=== PATIENT | female | born 1940 | race Caucasian/White ===

== ENCOUNTER 2017-09-26 21:53 | Inpatient (IN) | payer OTHER, MEDICAID, MEDICARE ==
--- NOTE | 2017-09-27 00:22 | ED Physician Chart ---
ED Chief Complaint/HPI - Patient Information Date Seen:: 09/27/17 Time Seen:: 22:40 Chief Complaint:: abdominal pain History of Present Illness:: location: abdomen quality: sharp pain severity: mild duration; two weeks context: pt with persistent upper abdominal pain intermittently over the last 2 weeks. says she was recently admitted at [facility] for rehab after pneumonia. and has been at [facility] many times in the last few years related to bilateral knee replacement surgery. lives at home alone. no care provider at home. currently reports sharp upper abdominal pain, says she has eaten today but currently has no appetite but says she is anxious and wants to take her routine prescribed xanax medication that she gets on a schedule when at [facility]. no chest pain, no shortness of breath. pt points to upper abdomen just superior to umbilicus. no vomiting, no diarrhea, no fever. mod factors: none assoc s/s: none hx from pt. medics report that pt called for ambulance from home and was initially taken to [facility] but when the ambulance arrived at the door of that facility pt decided to change to another facility and asked the medics to take her to [facility]. Allergies:: Allergies Allergy/AdvReac Type Severity Reaction Status Date / Time aspirin AdvReac STOMACH Verified 09/26/17 22:54 CRAMPS Vitals:: Vital Signs - 8 hr 09/26/17 22:30 Temp 98.1 F HR 80 RR 18 BP 158/71 O2 Sat % 96 Historian:: Patient Review:: Nurse's Note Reviewed, EMS run form Reviewed ED Review of Systems - Review of Systems General/Constitutional: No fever, No chills, No weight loss, No weakness, No diaphoresis, No edema, No loss of appetite Skin: No skin lesions, No rash, No bruising Head: No headache, No light-headedness Eyes: No loss of vision, No pain, No diplopia ENT: No earache, No nasal drainage, No sore throat, No tinnitus Neck: No neck pain, No swelling, No thyromegaly, No stiffness, No mass noted Cardio Vascular: No chest pain, No palpitations, No PND, No orthopnea, No edema Pulmonary: No SOB, No cough, No sputum, No wheezing GI: No nausea, No vomiting, No diarrhea, Pain, No melena, No hematochezia, No constipation, No hematemesis G/U: No dysuria, No frequency, No hematuria Musculoskeletal: No bone or joint pain, No back pain, No muscle pain Endocrine: No polyuria, No polydipsia Psychiatric: No prior psych history, No depression, No anxiety, No suicidal ideation Hematopoietic: No bruising, No lymphadenopathy Allergic/Immuno: No urticaria, No angioedema Neurological: No syncope, No focal symptoms, No weakness, No paresthesia, No headache, No seizure, No dizziness, No confusion, No vertigo ED Past Medical History - Past Medical History Past Medical History: Asthma/COPD (pt says she never smoked tobacco but was exposed to second hand smoke for many years. ), Thyroid disorder Family History: None Social History: Non Smoker, No Alcohol, No Drug Use Surgical History: other (bilateral knee replacement surgery) Psychiatricy History: Depression Medication: Reviewed Family Medical History - Family Member Mother History Unknown: Yes Ethnicity: Non- Living Status: ED Physical Exam - Physical Examination General/Constitutional: Awake, Well-developed, well-nourished, Alert, No distress, GCS 15, Non-toxic appearing, Ambulatory Head: Atraumatic Eyes: Lids, conjuctiva normal, PERRL, EOMI Skin: Nl inspection, No skin lesions, No ecchymosis ENMT: External ears, nose nl, Nasal exam nl, Lips, teeth, gums nl, Oropharynx nl Neck: Nontender, No nuchal rigidity Respiratory: Nl effort/Exclusion, Clear to Auscultation, No Wheeze/Rhonchi/Rales Cardio Vascular: RRR, No murmur, gallop, rubs, NL S1 S2 GI: No tenderness/rebounding/guarding (upper abdominal tenderness, no rebound, no guarding, pt with morbidly obese abdomen, mildly increasd bowel sounds at epigastrium) : No CVA tenderness Extremities: No tenderness or effusion, Full ROM, normal strength in all extremities, No edema, Normal digits & nails Neuro/Psych: Alert/oriented, DTR's symmetric, Normal sensory exam, Normal motor strength, Judgement/insight normal, Mood normal, No focal deficits Misc: Normal back, No paraspinal tenderness ED Labs/Radiology/EKG Results - Lab Results Results: Laboratory Tests 09/27/17 09/27/17 09/27/17 00:45 00:47 00:47 WBC 10.8 RBC 5.64 H Hgb 15.4 D Hct 47.6 D MCV 84.4 MCH 27.2 MCHC Differential 32.3 RDW 15.3 Plt Count 262 D MPV 9.0 Neutrophils % 69.3 Lymphocytes % 20.0 Monocytes % 9.1 Eosinophils % 1.6 Basophils % 0.0 Sodium Potassium Chloride Carbon Dioxide Anion Gap BUN Creatinine Est GFR ( Amer) Est GFR (Non-Af Amer) BUN/Creatinine Ratio Glucose Whole Bld Lactic Acid 0.71 Calcium Total Bilirubin AST ALT Alkaline Phosphatase Total Protein Albumin Globulin Albumin/Globulin Ratio Urine Source CATH Urine Color YELLOW Urine Clarity HAZY Urine pH 7.5 Ur Specific [place] 1.015 Urine Protein NEGATIVE Urine Glucose (UA) NEGATIVE Urine Ketones TRACE Urine Blood NEGATIVE Urine Nitrate NEGATIVE Urine Bilirubin NEGATIVE Urine Urobilinogen 0.2 Ur Leukocyte Esterase TRACE H Urine RBC 0-2 Urine WBC 2-5 Ur Epithelial Cells MODERATE Amorphous Sediment MANY PHOSPHATES Urine Bacteria MODERATE Urine Mucus FEW 09/27/17 00:47 WBC RBC Hgb Hct MCV MCH MCHC Differential RDW Plt Count MPV Neutrophils % Lymphocytes % Monocytes % Eosinophils % Basophils % Sodium 140 Potassium 3.7 Chloride 108 H Carbon Dioxide 26.6 Anion Gap 9.1 BUN 18 Creatinine 0.6 Est GFR ( Amer) TNP Est GFR (Non-Af Amer) TNP BUN/Creatinine Ratio 30.0 Glucose 107 H Whole Bld Lactic Acid Calcium 9.6 Total Bilirubin 0.5 AST 11 L ALT 16 Alkaline Phosphatase 81 Total Protein 7.1 Albumin 3.9 Globulin 3.2 Albumin/Globulin Ratio 1.2 Urine Source Urine Color Urine Clarity Urine pH Ur Specific [place] Urine Protein Urine Glucose (UA) Urine Ketones Urine Blood Urine Nitrate Urine Bilirubin Urine Urobilinogen Ur Leukocyte Esterase Urine RBC Urine WBC Ur Epithelial Cells Amorphous Sediment Urine Bacteria Urine Mucus - Radiology Results Results: CT abdomen and pelvis no acute findings gallbladder and uterus surgically absent no appendicitis is visualized fatty replacement of pancreatic head no biliary dilation liver and spleen unremarkable scarring inferior pole left kidney colonic diverticulosis, no diverticulitis L1 anterior compression fracture, chronic RAD READ - EKG Interpretations Comments:: EKG atrial fibrillation rate 74 borderline left axis deviation low voltage precordial leads no acute ST elevation no acute ST depression abnormal EKG pt with upper abdominal pain on initial evaluation. abnormal EKG ED Assessment - Assessment General Assessment: pt in stable condition while in ER ED Septic Shock - . Is Septic Shock (SBP<90, OR Lactate>4 mmol\L) present?: No - <6hrs of presentation: Vital Signs: Vital Signs - 8 hr 09/26/17 22:30 Temp 98.1 F HR 80 RR 18 BP 158/71 O2 Sat % 96 ED Reassessment (Disposition) - Reassessment Reassessment:: medical decision making: pt is recent SNF discharge from [facility] for rehab after pneumonia. currently no complaint of cough or fever and physical examination shows no cough or basilar rales. pt with upper abdominal pain. will explore this further to assess ifi patient has an acute abdominal diagnosis. CT abdomen and pelvis. pt with large body habitus, morbidly obese abdomen it is fairly possible that if patient has an acute intraabdominal process ongoiing that she would not be able to provide self care due to weakness. CT abdomen and pelvis shows no acute findings - RAD READ L1 anterior compression fracture, non-acute diverticulosis, no diverticulitis RAD READ. Reassessment Condition:: Improved - Diagnosis Diagnosis:: chest pain upper abdominal pain anxiety - improved. - Patient Disposition Discharge/Transfer:: Acute Care w/in this hosp Admitted to:: Telemetry Condition at Disposition:: Stable, Improved
[2017-09-27 01:00] LABS: % EOSINOPHILS 1.6 % (0.0-5.0); % MONOCYTES 9.1 % (2.0-10.0); % NEUTROPHILS 69.3 % (40.0-80.0); MEAN CELL VOLUME 84.4 fl (81-100); MEAN CORPUSCULAR HEMOGLOBIN 27.2 pg (27.0-31.0); MEAN CORPUSCULAR HGB CONC 32.3 pg (28.0-36.0); NEUTROPHILE ABSOLUTE 7.4 Th/cmm (1.8-8.0); RED BLOOD COUNT 5.64 Mil/cmm (3.80-5.20); RED CELL DISTRIBUTION WIDTH 15.3 % (11.5-20.0); WHITE BLOOD COUNT 10.8 Th/cmm (4.8-10.8)
[2017-09-27 01:01] LABS: HEMOGLOBIN 15.4 gm/dL (12-16)
[2017-09-27 01:02] LABS: HEMATOCRIT 47.6 % (41.0-60); PLATELET COUNT 262 Th/cmm (150-400)
[2017-09-27 01:19] LABS: URINE BILIRUBIN NEGATIVE (NEGATIVE); URINE BLOOD NEGATIVE (NEGATIVE); URINE GLUCOSE (UA) NEGATIVE (NEGATIVE); URINE KETONE TRACE mg/dL (NEGATIVE); URINE PH 7.5 (4.6 - 8.0); URINE PROTEIN NEGATIVE (NEGATIVE); URINE UROBILINOGEN 0.2 E.U./dL (0.2 - 1.0)
[2017-09-27 01:21] LABS: ALB/GLOB RATIO 1.2 (1.0-1.8); ALKALINE PHOSPHATASE 81 U/L (34-104); ANION GAP 9.1 (7.0-16.0); BILIRUBIN,TOTAL 0.5 mg/dL (0.3-1.0); BUN - UREA NITROGEN 18 mg/dL (7-25); CALCIUM SERUM 9.6 mg/dL (8.6-10.3); CARBON DIOXIDE 26.6 mEq/L (21.0-31.0); CHLORIDE 108 mEq/L (98-107); CREATININE - SERUM 0.6 mg/dL (0.6-1.2); GLUCOSE 107 mg/dL (70-105); POTASSIUM SERUM 3.7 mEq/L (3.5-5.1); SGOT 11 U/L (13-39); SGPT/ALT 16 U/L (7-52); SODIUM SERUM 140 mEq/L (136-145)
[2017-09-27 01:35] LABS: URINE AMORPHOUS SEDIMENT MANY PHOSPHATES (NONE SEEN); URINE BACTERIA MODERATE /hpf (NONE SEEN); URINE COLOR YELLOW; URINE EPITHELIAL CELLS MODERATE /lpf (FEW); URINE RBC 0-2 /hpf (0-5)
[2017-09-27] MEDS ORDERED: Albuterol Nebulizer 2.5mg/3mL HHN PRN (04:27)
[2017-09-27 05:46] VITALS: BP 100/70
--- NOTE | 2017-09-27 08:14 | Diagnostic Imaging Report ---
CT abdomen and pelvis without intravenous contrast Indication: Upper abdominal pain Comparison: None, Technique: Axial images were obtained from the lung bases to the bilateral proximal femurs without IV contrast. Coronal reconstructions were made. total DLP: 839, CTDI17.9 FINDINGS: Hypoventilatory atelectatic changes of the lung bases are noted. Assessment of the solid organs is limited due to lack of IV contrast. Exam is also limited due to motion. No evidence of focal hepatic lesions. The patient is status post cholecystectomy. No focal splenic lesions. There is diffuse pancreatic gland atrophy. No focal adrenal lesions. No evidence of hydronephrosis or focal renal lesions. Left renal scarring is noted. The patient is status post hysterectomy. Diverticulosis is noted without evidence of diverticulitis. The appendix is not visualized. No evidence of free fluid or free air. Mild atherosclerotic vascular disease is noted. Nonspecific 1 cm subcutaneous nodule of the right anterior pelvic wall is noted (image 63, series 2). Degenerative changes of the spine are seen with advanced chronic appearing compression fracture of L1 with almost complete vertebral body loss of height anteriorly and increased of the kyphotic curvature at this level. 3 mm posterior osteophytic spurring is also seen at T12/L1 causing mild spinal canal narrowing. IMPRESSION: Limited exam due to motion. Colonic diverticulosis without evidence of diverticulitis. Evidence of prior cholecystectomy and hysterectomy. Diffuse pancreatic gland atrophy. Chronic compression fracture of L1 with almost complete vertebral body loss of height anteriorly. There is also increase in the kyphotic curvature at this level. There is also predominant posterior osteophytic spurring causing mild spinal canal narrowing. T score patient's clinical history normal exams. Nonspecific 1 cm subcutaneous nodule right anterior pelvic wall possibly due to previous inflammatory process or injection procedure.
--- NOTE | 2017-09-27 09:20 | History and Physical ---
History of Present Illness - HPI Chief Complaint: Abdominal pain HPI: Patient refer that last 2 weeks she has having constant abdominal pain, reason why she was [facility] to [facility]. At ER was find A-fib and was hospitalized for observation. Vital Signs: Last Vital Signs Temp 97.6 F 09/27/17 04:19 Pulse 83 09/27/17 04:57 Resp 20 09/27/17 04:59 BP 100/70 09/27/17 05:45 Pulse Ox 92 09/27/17 04:57 Past Medical History Cardiovascular: Report: AFIB, CAD Pulmonary: Report: Asthma, COPD MEDICAL RADIATION THERAPIST: Report: No Pertinent Hx GI: Report: No Pertinent Hx Psych: Report: Anxiety, Other (Benzodiazepine depandant) Musculoskeletal: Report: Weakness Rheumatologic: Report: No pertinent Hx Infectious Disease: Report: No Pertinent Hx Renal/: Report: No Pertinent Hx Endocrine: Report: Hypothyroidism Dermatology: Report: No Pertinent Hx - Past Surgical History Past Surgical History: Other (Bilateral knee surgery) Family Medical History - Family Member Mother History Unknown: Yes Ethnicity: Non- Living Status: Social History Smoke: No Alcohol: None Drugs: None Lives: Alone Domestic Violence: Negative - Medications Home Medications: Home Medication Medication Instructions Recorded Type Alprazolam [Xanax*] 1 mg PO TID PRN 09/26/17 History Levothyroxine [Synthroid] 0.025 mg PO QDAC 09/26/17 History Melatonin 3 mg PO HS 09/26/17 History Trazodone HCl 50 mg PO HS 09/26/17 History - Allergies Allergies/Adverse Reactions: Allergies Allergy/AdvReac Type Severity Reaction Status Date / Time aspirin AdvReac STOMACH Verified 09/26/17 22:54 CRAMPS Review of Systems - Review of Systems Constitutional: Report: No Significant Eyes: Report: No Significant ENT: Report: No Significant Respiratory: Report: SOB with Excertion Cardiovascular: Report: Palpitations Gastrointestinal: Report: Abdominal Pain Genitourinary: Report: No Significant Musculoskeletal: Report: No Significant Skin: Report: No Significant Neurological: Report: Weakness Physical Exam - Physical Exam HEENT: Report: Ears Nose Throat within normal limits Neck: Report: Within normal limits Cardiovascular Systems: Report: Regular, Rate and Rhythm Respiratory: Report: Breath Sounds are within normal limits Abdomen: Report: Tender to palpation Back: Report: Inspection of back is within normal limits. Extremities: Report: Non-tender to palpation. Skin: Report: Color of skin is within normal limits, Warm, Dry Neuro/Psych: Report: Depressed affect - Assessment Assessment: Patient is awake, alert, anxious, requesting Xanax, no pain at this moment. Dx : Abdominal pain, A-fib, asthma, COPD, Hypothyroidism, Anxiety, Morbib obesity. - Plan Plan: Patient continue with home meds, Consult with cardio was placed. Case management to look for placement.
[2017-09-27] MEDS: Levothyroxine 0.025 Mg Tab PO SCH (10:57)
[2017-09-27] MEDS ORDERED: Influenza Vaccine 0.5 mL Syr IM ONE (11:00)
[2017-09-27] MEDS: Diclofenac 75 mg Tab PO SCH (18:17)
[2017-09-27] MEDS ORDERED: Non-Formulary Item 1 EA (Melatonin [Melatonin] 3 MG) PO SCH (21:00)
[2017-09-28 06:11] LABS: % BASOPHILS 0.5 % (0.0-2.0); % EOSINOPHILS 3.3 % (0.0-5.0); % LYMPHOCYTES 21.4 % (20.0-50.0); % MONOCYTES 7.8 % (2.0-10.0); HEMATOCRIT 47.8 % (41.0-60); HEMOGLOBIN 15.1 gm/dL (12-16); MEAN CELL VOLUME 84.3 fl (81-100); MEAN CORPUSCULAR HEMOGLOBIN 26.7 pg (27.0-31.0); MEAN CORPUSCULAR HGB CONC 31.6 pg (28.0-36.0); MEAN PLATELET VOLUME 8.9 fl; NEUTROPHILE ABSOLUTE 4.9 Th/cmm (1.8-8.0); PLATELET COUNT 242 Th/cmm (150-400); RED BLOOD COUNT 5.67 Mil/cmm (3.80-5.20); RED CELL DISTRIBUTION WIDTH 16.1 % (11.5-20.0)
[2017-09-28 06:17] LABS: WHITE BLOOD COUNT 7.3 Th/cmm (4.8-10.8)
--- NOTE | 2017-09-28 06:17 | Consultation ---
DATE OF CONSULTATION: 09/27/[address] Jimenez. HISTORY AND PHYSICAL: This is a 77-year-old obese female patient who has been complaining of abdominal pain over period of few days which got really deteriorated. No nausea or vomiting. The patient is admitted. The patient was found to have atrial fibrillation. Hence cardiac consult is requested. PAST MEDICAL HISTORY: COPD, obesity, hypothyroid, anxiety. FAMILY HISTORY: Unremarkable. SOCIAL HISTORY: No history of smoking or alcohol abuse. ALLERGIES: None. PHYSICAL EXAMINATION: VITAL SIGNS: Blood pressure 120/80, pulse 70, respirations 20. HEAD: Normocephalic. No lumps or bumps. EYES: Pupils equal, reactive to light. Fundi show AV nicking, sclerae white, conjunctivae pink. NECK: Carotid 2+. Normal upstroke. JVD flat. Thyroid not palpable. Lymph nodes not palpable. CHEST: Shows increased AP diameter. No kyphosis, scoliosis. LUNGS: Bilateral bronchovesicular breath sounds. HEART: PMI fifth intercostal space with lateral to midclavicular line. S1, S2. No S3, S4. S1 irregular. Systolic murmur, grade 2/6, lower left sternal border without radiation. ABDOMEN: Soft. Liver, spleen not palpable. No organomegaly. Bowel sounds active. There is tenderness to the upper abdomen. No rebound tenderness. NEUROLOGICAL: Unremarkable. EXTREMITIES: Peripheral pulses 2+. No pedal edema. CLINICAL IMPRESSION: Abdominal pain; etiology unknown, atrial fibrillation, chronic obstructive pulmonary disease, obesity, hypothyroid, anxiety, L1 compression fracture, osteoporosis. PLAN: We will control the heart rate, anticoagulate the patient. JOB# [id number]
[2017-09-28 06:30] LABS: ALB/GLOB RATIO 1.2 (1.0-1.8); ALKALINE PHOSPHATASE 73 U/L (34-104); ANION GAP 5.8 (7.0-16.0); BILIRUBIN,TOTAL 0.4 mg/dL (0.3-1.0); BUN - UREA NITROGEN 14 mg/dL (7-25); CALCIUM SERUM 9.2 mg/dL (8.6-10.3); CARBON DIOXIDE 30.4 mEq/L (21.0-31.0); CHLORIDE 107 mEq/L (98-107); CREATININE - SERUM 0.7 mg/dL (0.6-1.2); GLUCOSE 102 mg/dL (70-105); POTASSIUM SERUM 4.2 mEq/L (3.5-5.1); SGOT 10 U/L (13-39); SGPT/ALT 14 U/L (7-52); SODIUM SERUM 139 mEq/L (136-145)
--- NOTE | 2017-09-28 07:41 | General Progress Note ---
Subjective - Review of Systems Service Date: 09/28/17 Subjective: I want my Bryan Objective - Results Result Diagrams: 09/28/17 05:30 09/28/17 05:30 Recent Labs: Laboratory Last Values WBC 7.3 Th/cmm (4.8-10.8) D 09/28/17 05:30 RBC 5.67 Mil/cmm (3.80-5.20) H 09/28/17 05:30 Hgb 15.1 gm/dL (12-16) 09/28/17 05:30 Hct 47.8 % (41.0-60) 09/28/17 05:30 MCV 84.3 fl (81-100) 09/28/17 05:30 MCH 26.7 pg (27.0-31.0) L 09/28/17 05:30 MCHC Differential 31.6 pg (28.0-36.0) 09/28/17 05:30 RDW 16.1 % (11.5-20.0) 09/28/17 05:30 Plt Count 242 Th/cmm (150-400) 09/28/17 05:30 MPV 8.9 fl 09/28/17 05:30 Neutrophils % 67.0 % (40.0-80.0) 09/28/17 05:30 Lymphocytes % 21.4 % (20.0-50.0) 09/28/17 05:30 Monocytes % 7.8 % (2.0-10.0) 09/28/17 05:30 Eosinophils % 3.3 % (0.0-5.0) 09/28/17 05:30 Basophils % 0.5 % (0.0-2.0) 09/28/17 05:30 Sodium 139 mEq/L (136-145) 09/28/17 05:30 Potassium 4.2 mEq/L (3.5-5.1) 09/28/17 05:30 Chloride 107 mEq/L (98-107) 09/28/17 05:30 Carbon Dioxide 30.4 mEq/L (21.0-31.0) 09/28/17 05:30 Anion Gap 5.8 (7.0-16.0) L 09/28/17 05:30 BUN 14 mg/dL (7-25) 09/28/17 05:30 Creatinine 0.7 mg/dL (0.6-1.2) 09/28/17 05:30 Est GFR ( Amer) TNP 09/28/17 05:30 Est GFR (Non-Af Amer) TNP 09/28/17 05:30 BUN/Creatinine Ratio 20.0 09/28/17 05:30 Glucose 102 mg/dL (70-105) 09/28/17 05:30 Whole Bld Lactic Acid 0.71 mmol/L (0.60-1.99) 09/27/17 00:47 Calcium 9.2 mg/dL (8.6-10.3) 09/28/17 05:30 Total Bilirubin 0.4 mg/dL (0.3-1.0) 09/28/17 05:30 AST 10 U/L (13-39) L 09/28/17 05:30 ALT 14 U/L (7-52) 09/28/17 05:30 Alkaline Phosphatase 73 U/L (34-104) 09/28/17 05:30 Troponin I ng/mL (0.01-0.05) 09/27/17 00:47 Total Protein 6.4 gm/dL (6.0-8.3) 09/28/17 05:30 Albumin 3.5 gm/dL (3.7-5.3) L 09/28/17 05:30 Globulin 2.9 gm/dL 09/28/17 05:30 Albumin/Globulin Ratio 1.2 (1.0-1.8) 09/28/17 05:30 Urine Source CATH 09/27/17 00:45 Urine Color YELLOW 09/27/17 00:45 Urine Clarity HAZY (CLEAR) 09/27/17 00:45 Urine pH 7.5 (4.6 - 8.0) 09/27/17 00:45 Ur Specific [place] 1.015 (1.005-1.030) 09/27/17 00:45 Urine Protein NEGATIVE mg/dL (NEGATIVE) 09/27/17 00:45 Urine Glucose (UA) NEGATIVE mg/dL (NEGATIVE) 09/27/17 00:45 Urine Ketones TRACE mg/dL (NEGATIVE) 09/27/17 00:45 Urine Blood NEGATIVE (NEGATIVE) 09/27/17 00:45 Urine Nitrate NEGATIVE (NEGATIVE) 09/27/17 00:45 Urine Bilirubin NEGATIVE (NEGATIVE) 09/27/17 00:45 Urine Urobilinogen 0.2 E.U./dL (0.2 - 1.0) 09/27/17 00:45 Ur Leukocyte Esterase TRACE (NEGATIVE) H 09/27/17 00:45 Urine RBC 0-2 /hpf (0-5) 09/27/17 00:45 Urine WBC 2-5 /hpf (0-5) 09/27/17 00:45 Ur Epithelial Cells MODERATE /lpf (FEW) 09/27/17 00:45 Amorphous Sediment MANY PHOSPHATES (NONE SEEN) 09/27/17 00:45 Urine Bacteria MODERATE /hpf (NONE SEEN) 09/27/17 00:45 Urine Mucus FEW /lpf (FEW) 09/27/17 00:45 - Physical Exam Vitals and I&O: Vital Signs Temp 98.2 F 09/28/17 04:00 Pulse 78 09/28/17 04:00 Resp 19 09/28/17 04:00 BP 130/56 09/28/17 04:00 Pulse Ox 94 09/28/17 04:00 Intake & Output 09/27/17 09/28/17 09/28/17 18:59 06:59 18:59 Intake Total 400 Balance 400 Weight (lbs) 107.048 kg 97.976 kg Intake: Oral 400 Active Medications: Current Medications Acetaminophen (Tylenol) 650 mg PO Q6H PRN PRN Reason: Pain (Moderate) Stop: 11/26/17 20:47 Last Admin: 09/27/17 21:32 Dose: 650 mg Albuterol Sulfate (Albuterol 2.5mg/3ml Neb Ud) 2.5 mg HHN Q4H PRN PRN Reason: sob Stop: 11/26/17 04:26 Alprazolam (Xanax) 1 mg PO Q12H PRN; Protocol PRN Reason: Anxiety Stop: 11/26/17 09:24 Last Admin: 09/27/17 23:51 Dose: 1 mg Diclofenac Sodium (Voltaren) 75 mg PO BIDWM [facility] Stop: 11/26/17 17:59 Last Admin: 09/27/17 18:17 Dose: 75 mg Levothyroxine Sodium (Synthroid) 0.025 mg PO QDAC [facility] Stop: 11/26/17 10:59 Last Admin: 09/27/17 10:57 Dose: 0.025 mg Miscellaneous (Melatonin [Melatonin]) 3 mg PO HS [facility] Stop: 11/26/17 20:59 Ondansetron HCl (Zofran) 4 mg IV Q6H PRN PRN Reason: Nausea / Vomiting Stop: 11/26/17 20:46 Last Admin: 09/27/17 21:33 Dose: 4 mg Trazodone HCl (Desyrel) 50 mg PO HS [facility] PRN Reason: Protocol Stop: 11/26/17 20:59 Last Admin: 09/27/17 21:33 Dose: 50 mg General: Alert, Other (Confused) HEENT: Atraumatic Neck: Supple Cardiovascular: Regular rate Lungs: Clear to auscultation Abdomen: Bowel sounds, Soft Extremities: Other (No edema) Neurological: Other (Non ambulatory) Skin: Other (Warm and dry) Psych/Mental Status: Other (Patient is anxious and depress.) - Procedures Procedures: Procedures Procedure Code Date INJECT/INFUSE NEC 99.29 12/01/11 INSERT INDWELLING CATH 57.94 12/01/11 INSERT TEMP BLADDER CATH 39901 12/01/11 THER/PROPH/DIAG INJ SC/IM 78396 06/14/10 Assessment/Plan - Problem List Patient Problems: All Active Problems Right flank pain (Acute) R10.9 - Assessment Assessment: Patient is awake, alert, anxious, requesting Xanax, no pain at this moment. Dx : Abdominal pain, A-fib, asthma, COPD, Hypothyroidism, Anxiety, Morbib obesity. - Plan Plan: Patient continue with home meds, Patient seen by cardio, Awaiting psychiatry evaluation and placement.
[2017-09-28] MEDS: Diclofenac 75 mg Tab PO SCH ×2 (08:43→17:45)
[2017-09-28] MEDS: Levothyroxine 0.025 Mg Tab PO SCH (08:43)
--- NOTE | 2017-09-28 16:23 | Cardiology ---
09/27/2017 PROCEDURE: Echocardiogram. The patient of Dr. Jimenez. M-MODE ECHOCARDIOGRAM: Mitral valve, anterior leaflet of mitral valve shows normal excursion, EF velocity. Posterior leaflet of mitral valve shows normal excursion. Left ventricular posterior wall shows increased thickness, normal excursion. Interventricular septum shows increased thickness, normal excursion, hypertrophy of the left ventricle, ejection fraction 60%. Left atrium normal. Aortic root shows normal dimension, normal excursion of aortic leaflets. CONCLUSION: Hypertrophy of the left ventricle, ejection fraction 60%. 2D ECHO: Long axis view showed normal sized left ventricle with hypertrophy of the left ventricle. Left atrium normal. Aortic root shows normal dimension, normal excursion of aortic leaflets. Short axis view of mitral valve normal. Short axis view of aortic valve normal. Apical four chamber view showed normal sized left ventricle, left atrium, right ventricle, right atrium, tricuspid and mitral valve. Ejection fraction 60%. CONCLUSION: Hypertrophy of the left ventricle, ejection fraction 60%. Doppler study shows prominent A wave consistent with poor compliance of left ventricle, mild tricuspid regurgitation. Right ventricular systolic pressure 28 mmHg. CONCLUSION: Hypertrophy of the left ventricle, mild tricuspid regurgitation, ejection fraction 60%. [facility]# [id number]
--- NOTE | 2017-09-28 19:44 | Consultation ---
DATE OF CONSULTATION: 09/28/2017 REQUESTING PHYSICIAN: Dr. Tej Jimenez. REASON FOR CONSULTATION: Anxiety. HISTORY OF PRESENT ILLNESS: This patient is a 77-year-old women living by herself admitted for acute abdominal pain. The patient currently has been requesting for more and more of the Xanax. The patient is stating that she has been getting the Xanax 1 mg 4 times a day from her primary care physician and the patient is stating that she and cannot go off of the medications right away. The patient is very tearful and crying during the interview, hence a psychiatric consultation is called to address the issue. Chart is reviewed. The patient is interviewed and patient is also reporting that she used to see a psychiatrist, but has stopped, but getting her medications from primary care. She is not on any antidepressant medication. Chart review indicates that the patient is on 50 mg of the trazodone and the Xanax has been decreased to 1 mg 3 times a day. PAST PSYCHIATRIC HISTORY: Please refer to the above. MEDICAL AND SURGICAL HISTORY: The patient is stating that she has fibromyalgia and migraine headaches and patient also has a history of asthma and COPD, sleep apnea, hypothyroidism and morbid obesity. SOCIAL HISTORY: The patient is living by herself in a mobile home. The patient has a son and she does not have much of any contact and patient has two sisters, but they are busy with their own lives. The patient is stating that she is not in a good state of health at this time, she might need to go for placement. MENTAL EXAMINATION: The patient is a 77-year-old moderately obese, cooperative. Eye contact is fair. Mood is noted to be depressed. Affect is constricted. The patient is extremely anxious. Insight and judgment at this time are noted to be impaired. Impulse control is noted to be limited. The patient is not suicidal or homicidal. No psychotic symptoms are noted, but patient has been feeling frustrated at this time. The patient is alert and oriented. Short and watermaster are noted to be intact. The patient is stating that she has been on these medications for a long period of time and she cannot go off of it right away. ASSESSMENT: 1A. Anxiety disorder. 1B. Benzodiazepine dependence. PLAN: To decrease the dose of Xanax 1 mg 3 times a day and add 5 mg of the Lexapro in the morning and continue the trazodone and follow the patient up. JOB# [id number]
[2017-09-29 06:23] LABS: % BASOPHILS 0.2 % (0.0-2.0); % LYMPHOCYTES 21.8 % (20.0-50.0); % MONOCYTES 7.7 % (2.0-10.0); % NEUTROPHILS 66.3 % (40.0-80.0); HEMATOCRIT 46.2 % (41.0-60); HEMOGLOBIN 14.8 gm/dL (12-16); MEAN CELL VOLUME 85.2 fl (81-100); MEAN CORPUSCULAR HEMOGLOBIN 27.3 pg (27.0-31.0); MEAN PLATELET VOLUME 8.9 fl; NEUTROPHILE ABSOLUTE 4.6 Th/cmm (1.8-8.0); PLATELET COUNT 216 Th/cmm (150-400); RED BLOOD COUNT 5.42 Mil/cmm (3.80-5.20); RED CELL DISTRIBUTION WIDTH 15.6 % (11.5-20.0); WHITE BLOOD COUNT 6.9 Th/cmm (4.8-10.8)
[2017-09-29 06:46] LABS: ALB/GLOB RATIO 1.3 (1.0-1.8); ALKALINE PHOSPHATASE 75 U/L (34-104); BILIRUBIN,TOTAL 0.5 mg/dL (0.3-1.0); BUN - UREA NITROGEN 15 mg/dL (7-25); CALCIUM SERUM 9.4 mg/dL (8.6-10.3); CARBON DIOXIDE 30.4 mEq/L (21.0-31.0); CHLORIDE 105 mEq/L (98-107); CREATININE - SERUM 0.6 mg/dL (0.6-1.2); GLUCOSE 110 mg/dL (70-105); POTASSIUM SERUM 4.4 mEq/L (3.5-5.1); SGOT 10 U/L (13-39); SGPT/ALT 14 U/L (7-52); SODIUM SERUM 137 mEq/L (136-145)
[2017-09-29] MEDS: Levothyroxine 0.025 Mg Tab PO SCH (07:10)
[2017-09-29] MEDS: Diclofenac 75 mg Tab PO SCH (08:30)
--- NOTE | 2017-09-29 08:55 | General Progress Note ---
Subjective - Review of Systems Service Date: 09/29/17 Subjective: I want pain medication Objective - Results Result Diagrams: 09/29/17 06:00 09/29/17 06:00 Recent Labs: Laboratory Last Values WBC 6.9 Th/cmm (4.8-10.8) 09/29/17 06:00 RBC 5.42 Mil/cmm (3.80-5.20) H 09/29/17 06:00 Hgb 14.8 gm/dL (12-16) 09/29/17 06:00 Hct 46.2 % (41.0-60) 09/29/17 06:00 MCV 85.2 fl (81-100) 09/29/17 06:00 MCH 27.3 pg (27.0-31.0) 09/29/17 06:00 MCHC Differential 32.0 pg (28.0-36.0) 09/29/17 06:00 RDW 15.6 % (11.5-20.0) 09/29/17 06:00 Plt Count 216 Th/cmm (150-400) 09/29/17 06:00 MPV 8.9 fl 09/29/17 06:00 Neutrophils % 66.3 % (40.0-80.0) 09/29/17 06:00 Lymphocytes % 21.8 % (20.0-50.0) 09/29/17 06:00 Monocytes % 7.7 % (2.0-10.0) 09/29/17 06:00 Eosinophils % 4.0 % (0.0-5.0) 09/29/17 06:00 Basophils % 0.2 % (0.0-2.0) 09/29/17 06:00 Sodium 137 mEq/L (136-145) 09/29/17 06:00 Potassium 4.4 mEq/L (3.5-5.1) 09/29/17 06:00 Chloride 105 mEq/L (98-107) 09/29/17 06:00 Carbon Dioxide 30.4 mEq/L (21.0-31.0) 09/29/17 06:00 Anion Gap 6.0 (7.0-16.0) L 09/29/17 06:00 BUN 15 mg/dL (7-25) 09/29/17 06:00 Creatinine 0.6 mg/dL (0.6-1.2) 09/29/17 06:00 Est GFR ( Amer) TNP 09/29/17 06:00 Est GFR (Non-Af Amer) TNP 09/29/17 06:00 BUN/Creatinine Ratio 25.0 09/29/17 06:00 Glucose 110 mg/dL (70-105) H 09/29/17 06:00 Whole Bld Lactic Acid 0.71 mmol/L (0.60-1.99) 09/27/17 00:47 Calcium 9.4 mg/dL (8.6-10.3) 09/29/17 06:00 Total Bilirubin 0.5 mg/dL (0.3-1.0) 09/29/17 06:00 AST 10 U/L (13-39) L 09/29/17 06:00 ALT 14 U/L (7-52) 09/29/17 06:00 Alkaline Phosphatase 75 U/L (34-104) 09/29/17 06:00 Troponin I ng/mL (0.01-0.05) 09/27/17 00:47 Total Protein 6.4 gm/dL (6.0-8.3) 09/29/17 06:00 Albumin 3.6 gm/dL (3.7-5.3) L 09/29/17 06:00 Globulin 2.8 gm/dL 09/29/17 06:00 Albumin/Globulin Ratio 1.3 (1.0-1.8) 09/29/17 06:00 TSH 0.32 uIU/ml (0.34-5.60) L 09/28/17 05:30 Urine Source CATH 09/27/17 00:45 Urine Color YELLOW 09/27/17 00:45 Urine Clarity HAZY (CLEAR) 09/27/17 00:45 Urine pH 7.5 (4.6 - 8.0) 09/27/17 00:45 Ur Specific [place] 1.015 (1.005-1.030) 09/27/17 00:45 Urine Protein NEGATIVE mg/dL (NEGATIVE) 09/27/17 00:45 Urine Glucose (UA) NEGATIVE mg/dL (NEGATIVE) 09/27/17 00:45 Urine Ketones TRACE mg/dL (NEGATIVE) 09/27/17 00:45 Urine Blood NEGATIVE (NEGATIVE) 09/27/17 00:45 Urine Nitrate NEGATIVE (NEGATIVE) 09/27/17 00:45 Urine Bilirubin NEGATIVE (NEGATIVE) 09/27/17 00:45 Urine Urobilinogen 0.2 E.U./dL (0.2 - 1.0) 09/27/17 00:45 Ur Leukocyte Esterase TRACE (NEGATIVE) H 09/27/17 00:45 Urine RBC 0-2 /hpf (0-5) 09/27/17 00:45 Urine WBC 2-5 /hpf (0-5) 09/27/17 00:45 Ur Epithelial Cells MODERATE /lpf (FEW) 09/27/17 00:45 Amorphous Sediment MANY PHOSPHATES (NONE SEEN) 09/27/17 00:45 Urine Bacteria MODERATE /hpf (NONE SEEN) 09/27/17 00:45 Urine Mucus FEW /lpf (FEW) 09/27/17 00:45 - Physical Exam Vitals and I&O: Vital Signs Temp 97 F 09/29/17 04:00 Pulse 76 09/29/17 04:00 Resp 18 09/29/17 04:00 BP 126/52 09/29/17 04:00 Pulse Ox 96 09/29/17 04:00 Intake & Output 09/28/17 09/29/17 09/29/17 18:59 06:59 18:59 Intake Total 1520 Balance 1520 Weight (lbs) 97.976 kg Intake: Oral 1520 Other: # Voids 3 # Bowel Movements 0 Active Medications: Current Medications Acetaminophen (Tylenol) 650 mg PO Q6H PRN PRN Reason: Pain (Moderate) Stop: 11/26/17 20:47 Last Admin: 09/29/17 08:30 Dose: 650 mg Albuterol Sulfate (Albuterol 2.5mg/3ml Neb Ud) 2.5 mg HHN Q4H PRN PRN Reason: sob Stop: 11/26/17 04:26 Alprazolam (Xanax) 1 mg PO Q8HR PRN; Protocol PRN Reason: Anxiety Stop: 11/27/17 19:51 Last Admin: 09/28/17 23:45 Dose: 1 mg Escitalopram Oxalate (Lexapro) 5 mg PO DAILY MAICO Stop: 11/28/17 08:59 Levothyroxine Sodium (Synthroid) 0.025 mg PO QDAC MAICO Stop: 11/26/17 10:59 Last Admin: 09/29/17 07:10 Dose: 0.025 mg Ondansetron HCl (Zofran) 4 mg IV Q6H PRN PRN Reason: Nausea / Vomiting Stop: 11/26/17 20:46 Last Admin: 09/27/17 21:33 Dose: 4 mg Tramadol HCl (Ultram) 50 mg PO Q6HR PRN PRN Reason: Pain (Moderate) Stop: 11/28/17 08:46 Trazodone HCl (Desyrel) 50 mg PO HS MAICO PRN Reason: Protocol Stop: 11/26/17 20:59 Last Admin: 09/28/17 23:29 Dose: 50 mg General: Alert, Other (in no acute distress) HEENT: Atraumatic Neck: Supple Cardiovascular: Regular rate Lungs: Clear to auscultation Abdomen: Bowel sounds, Soft Extremities: Other (No edema) Neurological: Other (Non ambulatory) Skin: Other (Warm and dry) Psych/Mental Status: Other (Patient is anxious and depress.) - Procedures Procedures: Procedures Procedure Code Date INJECT/INFUSE NEC 99.29 12/01/11 INSERT INDWELLING CATH 57.94 12/01/11 INSERT TEMP BLADDER CATH 75468 12/01/11 THER/PROPH/DIAG INJ SC/IM 43987 06/14/10 Assessment/Plan - Problem List Patient Problems: All Active Problems Right flank pain (Acute) R10.9 - Assessment Assessment: Patient is awake, alert, anxious, requesting pain medication. Dx: Abdominal pain, A-fib, asthma, COPD, Hypothyroidism, Anxiety, Morbib obesity, Benzodiazepine dependent. - Plan Plan: Patient continue with home meds, Patient seen by cardio and psychiatry, consult with director case management for placement.
[2017-09-29] MEDS ORDERED: Escitalopram Oxalate 5 mg Tab PO SCH (09:00)
[2017-09-29] MEDS: Escitalopram Oxalate 5 mg Tab PO SCH (10:17)
[2017-09-30 06:14] LABS: % BASOPHILS 0.7 % (0.0-2.0); % EOSINOPHILS 4.1 % (0.0-5.0); % LYMPHOCYTES 19.6 % (20.0-50.0); % MONOCYTES 6.1 % (2.0-10.0); % NEUTROPHILS 69.5 % (40.0-80.0); HEMATOCRIT 48.5 % (41.0-60); HEMOGLOBIN 15.1 gm/dL (12-16); MEAN CORPUSCULAR HEMOGLOBIN 26.5 pg (27.0-31.0); MEAN CORPUSCULAR HGB CONC 31.2 pg (28.0-36.0); NEUTROPHILE ABSOLUTE 5.5 Th/cmm (1.8-8.0); PLATELET COUNT 221 Th/cmm (150-400); RED CELL DISTRIBUTION WIDTH 15.4 % (11.5-20.0); WHITE BLOOD COUNT 7.9 Th/cmm (4.8-10.8)
[2017-09-30] MEDS: Levothyroxine 0.025 Mg Tab PO SCH (06:43)
[2017-09-30 06:47] LABS: ALB/GLOB RATIO 1.3 (1.0-1.8); ALKALINE PHOSPHATASE 77 U/L (34-104); ANION GAP 5.4 (7.0-16.0); BILIRUBIN,TOTAL 0.4 mg/dL (0.3-1.0); BUN - UREA NITROGEN 12 mg/dL (7-25); CALCIUM SERUM 9.3 mg/dL (8.6-10.3); CARBON DIOXIDE 34.9 mEq/L (21.0-31.0); CHLORIDE 101 mEq/L (98-107); CREATININE - SERUM 0.5 mg/dL (0.6-1.2); GLUCOSE 107 mg/dL (70-105); POTASSIUM SERUM 4.3 mEq/L (3.5-5.1); SGOT 9 U/L (13-39); SGPT/ALT 12 U/L (7-52); SODIUM SERUM 137 mEq/L (136-145)
[2017-09-30] MEDS: Escitalopram Oxalate 5 mg Tab PO SCH (08:52)
--- NOTE | 2017-09-30 08:52 | General Progress Note ---
Subjective - Review of Systems Service Date: 09/30/17 Subjective: I want my tika Objective - Results Result Diagrams: 09/30/17 05:37 09/30/17 05:37 Recent Labs: Laboratory Last Values WBC 7.9 Th/cmm (4.8-10.8) 09/30/17 05:37 RBC 5.70 Mil/cmm (3.80-5.20) H 09/30/17 05:37 Hgb 15.1 gm/dL (12-16) 09/30/17 05:37 Hct 48.5 % (41.0-60) 09/30/17 05:37 MCV 85.0 fl (81-100) 09/30/17 05:37 MCH 26.5 pg (27.0-31.0) L 09/30/17 05:37 MCHC Differential 31.2 pg (28.0-36.0) 09/30/17 05:37 RDW 15.4 % (11.5-20.0) 09/30/17 05:37 Plt Count 221 Th/cmm (150-400) 09/30/17 05:37 MPV 9.0 fl 09/30/17 05:37 Neutrophils % 69.5 % (40.0-80.0) 09/30/17 05:37 Lymphocytes % 19.6 % (20.0-50.0) L 09/30/17 05:37 Monocytes % 6.1 % (2.0-10.0) 09/30/17 05:37 Eosinophils % 4.1 % (0.0-5.0) 09/30/17 05:37 Basophils % 0.7 % (0.0-2.0) 09/30/17 05:37 Sodium 137 mEq/L (136-145) 09/30/17 05:37 Potassium 4.3 mEq/L (3.5-5.1) 09/30/17 05:37 Chloride 101 mEq/L (98-107) 09/30/17 05:37 Carbon Dioxide 34.9 mEq/L (21.0-31.0) H 09/30/17 05:37 Anion Gap 5.4 (7.0-16.0) L 09/30/17 05:37 BUN 12 mg/dL (7-25) 09/30/17 05:37 Creatinine 0.5 mg/dL (0.6-1.2) L 09/30/17 05:37 Est GFR ( Amer) TNP 09/30/17 05:37 Est GFR (Non-Af Amer) TNP 09/30/17 05:37 BUN/Creatinine Ratio 24.0 09/30/17 05:37 Glucose 107 mg/dL (70-105) H 09/30/17 05:37 Whole Bld Lactic Acid 0.71 mmol/L (0.60-1.99) 09/27/17 00:47 Calcium 9.3 mg/dL (8.6-10.3) 09/30/17 05:37 Total Bilirubin 0.4 mg/dL (0.3-1.0) 09/30/17 05:37 AST 9 U/L (13-39) L 09/30/17 05:37 ALT 12 U/L (7-52) 09/30/17 05:37 Alkaline Phosphatase 77 U/L (34-104) 09/30/17 05:37 Troponin I ng/mL (0.01-0.05) 09/27/17 00:47 Total Protein 6.5 gm/dL (6.0-8.3) 09/30/17 05:37 Albumin 3.7 gm/dL (3.7-5.3) 09/30/17 05:37 Globulin 2.8 gm/dL 09/30/17 05:37 Albumin/Globulin Ratio 1.3 (1.0-1.8) 09/30/17 05:37 TSH 0.32 uIU/ml (0.34-5.60) L 09/28/17 05:30 Urine Source CATH 09/27/17 00:45 Urine Color YELLOW 09/27/17 00:45 Urine Clarity HAZY (CLEAR) 09/27/17 00:45 Urine pH 7.5 (4.6 - 8.0) 09/27/17 00:45 Ur Specific [place] 1.015 (1.005-1.030) 09/27/17 00:45 Urine Protein NEGATIVE mg/dL (NEGATIVE) 09/27/17 00:45 Urine Glucose (UA) NEGATIVE mg/dL (NEGATIVE) 09/27/17 00:45 Urine Ketones TRACE mg/dL (NEGATIVE) 09/27/17 00:45 Urine Blood NEGATIVE (NEGATIVE) 09/27/17 00:45 Urine Nitrate NEGATIVE (NEGATIVE) 09/27/17 00:45 Urine Bilirubin NEGATIVE (NEGATIVE) 09/27/17 00:45 Urine Urobilinogen 0.2 E.U./dL (0.2 - 1.0) 09/27/17 00:45 Ur Leukocyte Esterase TRACE (NEGATIVE) H 09/27/17 00:45 Urine RBC 0-2 /hpf (0-5) 09/27/17 00:45 Urine WBC 2-5 /hpf (0-5) 09/27/17 00:45 Ur Epithelial Cells MODERATE /lpf (FEW) 09/27/17 00:45 Amorphous Sediment MANY PHOSPHATES (NONE SEEN) 09/27/17 00:45 Urine Bacteria MODERATE /hpf (NONE SEEN) 09/27/17 00:45 Urine Mucus FEW /lpf (FEW) 09/27/17 00:45 - Physical Exam Vitals and I&O: Vital Signs Temp 98 F 09/30/17 04:00 Pulse 80 09/30/17 07:50 Resp 18 09/30/17 08:20 BP 129/66 09/30/17 04:00 Pulse Ox 97 09/30/17 07:50 Intake & Output 09/29/17 09/30/17 09/30/17 18:59 06:59 18:59 Intake Total 1840 Balance 1840 Weight (lbs) 97.976 kg Intake: Oral 1840 Other: # Voids 2 # Bowel Movements 0 Active Medications: Current Medications Acetaminophen (Tylenol) 650 mg PO Q6H PRN PRN Reason: Pain (Moderate) Stop: 11/26/17 20:47 Last Admin: 09/30/17 00:06 Dose: 650 mg Albuterol Sulfate (Albuterol 2.5mg/3ml Neb Ud) 2.5 mg HHN Q4H PRN PRN Reason: sob Stop: 11/26/17 04:26 Alprazolam (Xanax) 1 mg PO Q8HR PRN; Protocol PRN Reason: Anxiety Stop: 11/27/17 19:51 Last Admin: 09/29/17 20:49 Dose: 1 mg Escitalopram Oxalate (Lexapro) 5 mg PO DAILY MAICO Stop: 11/28/17 08:59 Last Admin: 09/29/17 10:17 Dose: 5 mg Levothyroxine Sodium (Synthroid) 0.025 mg PO QDAC MAICO Stop: 11/26/17 10:59 Last Admin: 09/30/17 06:43 Dose: 0.025 mg Ondansetron HCl (Zofran) 4 mg IV Q6H PRN PRN Reason: Nausea / Vomiting Stop: 11/26/17 20:46 Last Admin: 09/27/17 21:33 Dose: 4 mg Tramadol HCl (Ultram) 50 mg PO Q6HR PRN PRN Reason: Pain (Moderate) Stop: 11/28/17 08:46 Last Admin: 09/29/17 10:17 Dose: 50 mg Trazodone HCl (Desyrel) 50 mg PO HS MAICO PRN Reason: Protocol Stop: 11/26/17 20:59 Last Admin: 09/29/17 20:49 Dose: 50 mg General: Alert, Other (in no acute distress) HEENT: Atraumatic Neck: Supple Cardiovascular: Regular rate Lungs: Clear to auscultation Abdomen: Bowel sounds, Soft Extremities: Other (No edema) Neurological: Other (Non ambulatory) Skin: Other (Warm and dry) Psych/Mental Status: Other (Patient is anxious and depress.) - Procedures Procedures: Procedures Procedure Code Date INJECT/INFUSE NEC 99.29 12/01/11 INSERT INDWELLING CATH 57.94 12/01/11 INSERT TEMP BLADDER CATH [id number] 12/01/11 THER/PROPH/DIAG INJ SC/IM 96251 06/14/10 Assessment/Plan - Problem List Patient Problems: All Active Problems Right flank pain (Acute) R10.9 - Assessment Assessment: Patient is awake, alert, anxious, requesting pain medication. Dx: Abdominal pain, A-fib, asthma, COPD, Hypothyroidism, Anxiety, Morbib obesity, Benzodiazepine dependent. - Plan Plan: Patient continue with home meds, Patient seen by cardio and psychiatry, consult with test case developer for placement. patient will be discharge today.
--- NOTE | 2017-10-01 13:04 | Progress Notes ---
DATE: 09/29/[address] Jimenez. SUBJECTIVE: This 77-year-old obese female patient has no complaint of abdominal pain, no shortness of breath, no palpitation. OBJECTIVE: VITAL SIGNS: Blood pressure 130/80; pulse 80, regular; respirations 22; and temperature 99. LUNGS: Clear. HEART: Irregular rhythm S1. Irregular S2, S3, S4. ABDOMEN: Soft. EXTREMITIES: No pedal edema. ASSESSMENT: Atrial fibrillation, has converted to normal sinus rhythm; chronic obstructive pulmonary disease; hypothyroid; anxiety; L1 compression fracture; osteoporosis; obesity. The patient is cleared for discharge. JOB# [id number]
--- NOTE | 2017-10-03 16:36 | Discharge Summary ---
General Discharge Summary - Discharge Summary Date of Admission: 09/27/17 Admitting Diagnosis: Abdominal pain, A-fib, Asthma, COPD, Hypothyroidism, Anxiety Patient Problems: All Active Problems Right flank pain (Acute) R10.9 Discharge Date: 09/30/18 Discharge Diagnosis: Anxiety, Abdominal pain, A-fib, COPD, Asthma, Hypothyroidism, Laboratory Findings: Laboratory Tests 09/28/17 09/28/17 09/28/17 05:30 05:30 05:30 WBC 7.3 D RBC 5.67 H Hgb 15.1 Hct 47.8 MCV 84.3 MCH 26.7 L MCHC Differential 31.6 RDW 16.1 Plt Count 242 MPV 8.9 Neutrophils % 67.0 Lymphocytes % 21.4 Monocytes % 7.8 Eosinophils % 3.3 Basophils % 0.5 Sodium 139 Potassium 4.2 Chloride 107 Carbon Dioxide 30.4 Anion Gap 5.8 L BUN 14 Creatinine 0.7 Est GFR ( Amer) TNP Est GFR (Non-Af Amer) TNP BUN/Creatinine Ratio 20.0 Glucose 102 Calcium 9.2 Total Bilirubin 0.4 AST 10 L ALT 14 Alkaline Phosphatase 73 Total Protein 6.4 Albumin 3.5 L Globulin 2.9 Albumin/Globulin Ratio 1.2 TSH 0.32 L 09/29/17 09/29/17 09/30/17 06:00 06:00 05:37 WBC 6.9 7.9 RBC 5.42 H 5.70 H Hgb 14.8 15.1 Hct 46.2 48.5 MCV 85.2 85.0 MCH 27.3 26.5 L MCHC Differential 32.0 31.2 RDW 15.6 15.4 Plt Count 216 221 MPV 8.9 9.0 Neutrophils % 66.3 69.5 Lymphocytes % 21.8 19.6 L Monocytes % 7.7 6.1 Eosinophils % 4.0 4.1 Basophils % 0.2 0.7 Sodium 137 Potassium 4.4 Chloride 105 Carbon Dioxide 30.4 Anion Gap 6.0 L BUN 15 Creatinine 0.6 Est GFR ( Amer) TNP Est GFR (Non-Af Amer) TNP BUN/Creatinine Ratio 25.0 Glucose 110 H Calcium 9.4 Total Bilirubin 0.5 AST 10 L ALT 14 Alkaline Phosphatase 75 Total Protein 6.4 Albumin 3.6 L Globulin 2.8 Albumin/Globulin Ratio 1.3 TSH 09/30/17 05:37 WBC RBC Hgb Hct MCV MCH MCHC Differential RDW Plt Count MPV Neutrophils % Lymphocytes % Monocytes % Eosinophils % Basophils % Sodium 137 Potassium 4.3 Chloride 101 Carbon Dioxide 34.9 H Anion Gap 5.4 L BUN 12 Creatinine 0.5 L Est GFR ( Amer) TNP Est GFR (Non-Af Amer) TNP BUN/Creatinine Ratio 24.0 Glucose 107 H Calcium 9.3 Total Bilirubin 0.4 AST 9 L ALT 12 Alkaline Phosphatase 77 Total Protein 6.5 Albumin 3.7 Globulin 2.8 Albumin/Globulin Ratio 1.3 TSH Hospital Course: Patient was started with IV NS, Electrolites were replenish few times, she received, pain control and xanax. She was seen by Psychiatry and Cardio Treatment: IV NS, Pain control, Xanax and SNF meds. Disposition: Discharge/Transfered to SNF Home Medications: Home Medication Medication Instructions Recorded Type Alprazolam [Xanax*] 1 mg PO TID PRN 09/26/17 History Levothyroxine [Synthroid] 0.025 mg PO QDAC 09/26/17 History Melatonin 3 mg PO HS 09/26/17 History Trazodone HCl 50 mg PO HS 09/26/17 History Discharge Diet: 2 Gram Sodium Consults and Follow-Up: CAMMY ALVARADO [Other] not on staff,PCP is [Primary Care Provider] - Consulting Speciality: Cardiac, Renal Instructions: Abdominal Pain, [id number], Chest Wall Pain
== END 2017-09-30 11:30 | DRG 309 ==
LOC: ER 21:53 → TELE 09-27 02:40 → MSI 09-29 08:39
PROVIDERS: ADMIT General Practice; ATTEND General Practice
DX: I48.91 Unspecified atrial fibrillation (principal); F13.20 Sedative, hypnotic or anxiolytic dependence, uncomplicated; J44.9 Chronic obstructive pulmonary disease, unspecified; E66.01 Morbid (severe) obesity due to excess calories; M48.56XA Collapsed vertebra, not elsewhere classified, lumbar region, initial encounter for fracture; E03.9 Hypothyroidism, unspecified; Z77.22 Contact with and (suspected) exposure to environmental tobacco smoke (acute) (chronic); F41.9 Anxiety disorder, unspecified; F32.9 Major depressive disorder, single episode, unspecified; R07.9 Chest pain, unspecified; I25.10 Atherosclerotic heart disease of native coronary artery without angina pectoris; M81.0 Age-related osteoporosis without current pathological fracture; Z88.6 Allergy status to analgesic agent; Z89.512 Acquired absence of left leg below knee; Z68.39 Body mass index [BMI] 39.0-39.9, adult; Z89.511 Acquired absence of right leg below knee; Z79.899 Other long term (current) drug therapy
CPT/HCPCS: 36415-UA; 80053-TC; 81001-TC; 83605; 84443-TC; 84484-TC; 85025-TC; 93005; 94760; 97530; J2405; X3904; Z7610

== ENCOUNTER 2017-11-11 21:00 | Emergency (ER) | payer OTHER, MEDICAID ==
--- NOTE | 2017-11-11 23:50 | ED Physician Chart ---
ED Chief Complaint/HPI - Patient Information Date Seen:: 11/11/17 Time Seen:: 23:20 Chief Complaint:: s/p mechanical fall History of Present Illness:: 77 yo female was brought from home to ER for evaluation of a mechanical, ground level fall on a carpet while ambulating with a walker. She complained no localized pain except generalized pain secondary to fibromyalgia. She stated her pain was usually 7-10/10 on daily basis. Currently her pain was 7/10. In addition, the patient was feeling anxious and that she usually took Xanax 1 mg PO as needed for anxiety. Allergies:: Allergies Allergy/AdvReac Type Severity Reaction Status Date / Time aspirin AdvReac STOMACH Verified 09/26/17 22:54 CRAMPS Vitals:: Vital Signs - 8 hr 11/11/17 21:30 Temp 97.3 F HR 107 RR 18 BP 149/58 O2 Sat % 94 ED Review of Systems - Review of Systems General/Constitutional: No fever Skin: No skin lesions Head: No headache Eyes: No loss of vision ENT: No earache Neck: No neck pain Cardio Vascular: No chest pain Pulmonary: No SOB GI: No nausea, No vomiting Musculoskeletal: Bone or joint pain Psychiatric: Depression, Anxiety Neurological: No focal symptoms ED Past Medical History - Past Medical History Past Medical History: Asthma/COPD, Thyroid disorder (Hypothyroidism), Other ( fibromyalgia) Social History: Non Smoker, No Alcohol, No Drug Use Psychiatricy History: Depression, Other (anxiety) Family Medical History - Family Member Mother History Unknown: Yes Ethnicity: Non- Living Status: ED Physical Exam - Physical Examination General/Constitutional: Awake Head: Atraumatic Eyes: PERRL Skin: No skin lesions ENMT: Nasal exam nl Neck: No nuchal rigidity Respiratory: No Wheeze/Rhonchi/Rales Cardio Vascular: RRR, No murmur, gallop, rubs, NL S1 S2 GI: No tenderness/rebounding/guarding Extremities: normal strength in all extremities Neuro/Psych: No focal deficits ED Labs/Radiology/EKG Results - Radiology Results Results: CXR: No consolidation, cardiomegaly ED Assessment - Assessment General Assessment: Anxiety Fibromyalgia Dehydration Hypokalemia Assessment/Comments:: Xanax NS 1L IV bolus Tylenol D/c home F/u PCP or return to ER if symptoms worsen ED Septic Shock - . Is Septic Shock (SBP<90, OR Lactate>4 mmol\L) present?: No - <6hrs of presentation: Vital Signs: Vital Signs - 8 hr 11/11/17 21:30 Temp 97.3 F HR 107 RR 18 BP 149/58 O2 Sat % 94 ED Discharge Plan - Patient Disposition Admit/Discharge/Transfer: PT DISCHARGED HOME Instructions: Fall Prevention and Home Safety, [id number], Hypokalemia Additional Instructions: follow up with your primary medical doctor ángel
[2017-11-12 01:19] LABS: % BASOPHILS 4.9 % (0.0-2.0); % EOSINOPHILS 0.7 % (0.0-5.0); % LYMPHOCYTES 16.5 % (20.0-50.0); % MONOCYTES 8.2 % (2.0-10.0); % NEUTROPHILS 69.7 % (40.0-80.0); BASOPHILE ABSOLUTE 0.4 Th/cumm (0-0.2); EOSINOPHILE ABSOLUTE 0.1 Th/cmm (0.1-0.4); HEMOGLOBIN 13.6 gm/dL (12-16); LYMPHOCYTE ABSOLUTE 1.4 Th/cmm (1.5-3.0); MEAN CELL VOLUME 83.8 fl (81-100); MEAN CORPUSCULAR HEMOGLOBIN 27.8 pg (27.0-31.0); MEAN CORPUSCULAR HGB CONC 33.2 pg (28.0-36.0); MEAN PLATELET VOLUME 8.3 fl; MONOCYTE ABSOLUTE 0.7 Th/cmm (0.3-1.0); PLATELET COUNT 227 Th/cmm (150-400); RED CELL DISTRIBUTION WIDTH 15.7 % (11.5-20.0); WHITE BLOOD COUNT 8.6 Th/cmm (4.8-10.8)
[2017-11-12 01:23] LABS: HEMATOCRIT 41.1 % (41.0-60)
[2017-11-12 01:34] LABS: ALB/GLOB RATIO 1.5 (1.0-1.8); ALBUMIN 3.8 gm/dL (3.7-5.3); ALKALINE PHOSPHATASE 84 U/L (34-104); ANION GAP 12.8 (7.0-16.0); BILIRUBIN,TOTAL 0.3 mg/dL (0.3-1.0); BUN - UREA NITROGEN 16 mg/dL (7-25); CALCIUM SERUM 9.5 mg/dL (8.6-10.3); CARBON DIOXIDE 22.3 mEq/L (21.0-31.0); CHLORIDE 108 mEq/L (98-107); CREATININE - SERUM 0.6 mg/dL (0.6-1.2); GLUCOSE 149 mg/dL (70-105); POTASSIUM SERUM 3.1 mEq/L (3.5-5.1); SGOT 15 U/L (13-39); SGPT/ALT 20 U/L (7-52); SODIUM SERUM 140 mEq/L (136-145); TOTAL PROTEIN,SERUM 6.3 gm/dL (6.0-8.3)
[2017-11-12] MEDS ORDERED: Potassium Chloride 20 mEq ER Tab PO ONE ×2 (02:02→02:37)
[2017-11-12] MEDS ORDERED: Sodium Chloride 0.9% 1,000 ML IV ONE (02:05)
--- NOTE | 2017-11-12 09:03 | Diagnostic Imaging Report ---
Portable chest x-ray HISTORY: Shortness of breath The heart is enlarged. No focal pulmonary processes. No hilar or mediastinal abnormalities. IMPRESSION: 1. No acute abnormalities 2. Cardiomegaly
== END 2017-11-12 03:30 | disposition home or self-care (01) ==
LOC: ER 21:00
DX: M79.7 Fibromyalgia (principal); W19.XXXA Unspecified fall, initial encounter
CPT/HCPCS: 36415-UA; 71010-TC; 80053-TC; 85025-TC; J7030; Z7610